=== PATIENT | male | born 1945 | race Caucasian/White ===

== ENCOUNTER 2017-06-15 07:07 | Day surgery (SDC) | payer MEDICARE ==
[2017-06-15] MEDS ORDERED: LACTATED RINGERS 1,000 ML IV ONE (07:14)
[2017-06-15] MEDS ORDERED: MIDAZOLAM 2 MG/2 ML VIAL IVP ONE (08:48)
[2017-06-15] MEDS ORDERED: fentaNYL 100 MCG/2 ML VIAL IVP ONE (08:48)
[2017-06-15 09:36] VITALS: BP 92/36
== END 2017-06-15 07:08 | disposition home or self-care (01) ==
LOC: SDS 07:07
PROVIDERS: ATTEND Surgery
PROC: 0DBL8ZX Excision of Transverse Colon, Via Natural or Artificial Opening Endoscopic, Diagnostic (ICD-10-PCS; 2017-06-15)
PROC: 0DBK8ZX Excision of Ascending Colon, Via Natural or Artificial Opening Endoscopic, Diagnostic (ICD-10-PCS; principal; 2017-06-15 08:15)
DX: Z12.11 Encounter for screening for malignant neoplasm of colon (principal); D12.2 Benign neoplasm of ascending colon; D12.3 Benign neoplasm of transverse colon; K57.30 Diverticulosis of large intestine without perforation or abscess without bleeding; I10 Essential (primary) hypertension; E78.5 Hyperlipidemia, unspecified; Z79.82 Long term (current) use of aspirin
CPT/HCPCS: 45384; J7120

== ENCOUNTER 2018-05-26 15:29 | Outpatient (CLI) | payer MEDICARE | END 2018-05-26 15:30 | disposition home or self-care (01) | LOC: LAB 15:29 | PROVIDERS: ATTEND Family Medicine | DX: M79.661 Pain in right lower leg (principal) | CPT/HCPCS: 36415; 85379 ==

== ENCOUNTER 2018-06-09 10:03 | Outpatient (CLI) | payer MEDICARE ==
[2018-06-09 13:24] LABS: BASOPHILS # (AUTO) 0.2 10^3/uL (0.0-0.1); BASOPHILS % (AUTO) 1.9 %; EOSINOPHILS # (AUTO) 0.4 10^3/uL (0.0-0.7); EOSINOPHILS % (AUTO) 4.2 %; HGB - HEMOGLOBIN 14.2 g/dL (14.0-18.0); LYMPHOCYTES # (AUTO) 2.1 10^3/uL (1.5-3.5); LYMPHOCYTES % (AUTO) 24.4 %; MEAN CORPUSCULAR HEMOGLOBIN 28.8 pg (27.0-31.0); MEAN CORPUSCULAR HGB CONC 34.7 g/dL (32.0-36.0); MONOCYTES # (AUTO) 0.8 10^3/uL (0.0-1.0); NEUTROPHILS # (AUTO) 5.1 10^3/uL (1.5-6.6); NEUTROPHILS % (AUTO) 60.5 %; RED BLOOD COUNT 4.93 10^6/uL (4.70-6.10); RED CELL DISTRIBUTION WIDTH 13.5 % (12.0-15.0); WHITE BLOOD COUNT 8.5 x10^3/uL (4.8-10.8)
[2018-06-09 13:37] LABS: PLATELET ESTIMATE, MANUAL NORMAL (130-450,000) (NORMAL); PLATELET MORPHOLOGY PLATELET CLUMPING (NORMAL); RBC MORPHOLOGY (MULTIPLE) NORMAL APPEARANCE (NORMAL)
== END 2018-06-09 23:59 | disposition home or self-care (01) ==
LOC: LAB.WCP 10:03
PROVIDERS: ATTEND Family Medicine
DX: D69.6 Thrombocytopenia, unspecified (principal)
CPT/HCPCS: 36415; 85025

== ENCOUNTER 2018-06-12 08:22 | Outpatient (CLI) | payer MEDICARE ==
--- NOTE | 2018-06-14 09:46 | Ultrasound Report ---
Reason: POPLITEAL CYST Procedure Date: 06/12/2018 Accession Number: [id number] / [id number] Procedure: US - Ext Limited Non Vascular CPT Code: FULL RESULT: EXAM: RIGHT LOWER EXTREMITY ULTRASOUND - LIMITED EXAM DATE: 06/12/2018 08:47 AM. CLINICAL HISTORY: Popliteal cyst. COMPARISON: None. TECHNIQUE: Real-time scanning was performed with static images obtained. FINDINGS: The popliteal vein is patent by compression and color Doppler. No cystic structure is seen in the region of the popliteal fossa. IMPRESSION: No popliteal fossa cyst. RADIA
== END 2018-06-12 08:23 | disposition home or self-care (01) ==
LOC: DI 08:22
PROVIDERS: ATTEND Family Medicine
DX: M71.20 Synovial cyst of popliteal space [Baker], unspecified knee (principal)
CPT/HCPCS: 76882

== ENCOUNTER 2018-06-14 11:30 | Outpatient (CLI) | payer MEDICARE ==
[2018-06-14 18:54] LABS: BASOPHILS # (AUTO) 0.2 10^3/uL (0.0-0.1); EOSINOPHILS # (AUTO) 0.3 10^3/uL (0.0-0.7); EOSINOPHILS % (AUTO) 3.7 %; HGB - HEMOGLOBIN 14.3 g/dL (14.0-18.0); LYMPHOCYTES # (AUTO) 1.6 10^3/uL (1.5-3.5); LYMPHOCYTES % (AUTO) 20.3 %; MEAN CORPUSCULAR HEMOGLOBIN 28.9 pg (27.0-31.0); MEAN CORPUSCULAR HGB CONC 31.2 g/dL (32.0-36.0); MEAN CORPUSCULAR VOLUME 92.6 fL (80.0-94.0); MEAN PLATELET VOLUME 10.9 fL (7.4-11.4); MONOCYTES # (AUTO) 0.6 10^3/uL (0.0-1.0); MONOCYTES % (AUTO) 8.1 %; NEUTROPHILS # (AUTO) 5.2 10^3/uL (1.5-6.6); NEUTROPHILS % (AUTO) 65.9 %; RED BLOOD COUNT 4.95 10^6/uL (4.70-6.10); RED CELL DISTRIBUTION WIDTH 15.1 % (12.0-15.0); WHITE BLOOD COUNT 7.9 x10^3/uL (4.8-10.8)
[2018-06-14 19:47] LABS: PLATELET ESTIMATE, MANUAL NORMAL (130-450,000) (NORMAL); PLATELET MORPHOLOGY PLATELET CLUMPING (NORMAL); RBC MORPHOLOGY (MULTIPLE) NORMAL APPEARANCE (NORMAL)
== END 2018-06-14 11:31 | disposition home or self-care (01) ==
LOC: LAB.WCP 11:30
PROVIDERS: ATTEND Family Medicine
DX: D69.6 Thrombocytopenia, unspecified (principal)
CPT/HCPCS: 36415; 85025

== ENCOUNTER 2018-08-22 16:45 | Outpatient (CLI) | payer MEDICARE ==
--- NOTE | 2018-08-23 07:55 | Ultrasound Report ---
Reason: KNEE PAIN,RIGHT Procedure Date: 08/22/2018 Accession Number: [id number] / [id number] Procedure: US - Duplex Venous Limited CPT Code: FULL RESULT: EXAM: RIGHT LOWER EXTREMITY VENOUS ULTRASOUND EXAM DATE: 08/22/2018 04:51 PM. CLINICAL HISTORY: KNEE PAIN,RIGHT. Intermittent swelling and pain right calf. COMPARISON: Limited extremity ultrasound 06/12/2018. Right knee radiographs 04/21/2018. TECHNIQUE: Real-time sonographic vascular imaging was performed by the director adult through the lower extremity utilizing both color-flow and Doppler spectral analysis. Multiple pharmacy sales representative static images were saved for review. FINDINGS: Common Femoral Vein (CFV): Normal. CFV-GSV Junction: Normal. Profunda Femoral Vein (PFV): Normal. Femoral Vein (FV) Prox: Normal. Femoral Vein (FV) Mid: Normal. Femoral Vein (FV) Dist: Normal. Popliteal Vein: Normal. Posterior Tibial Veins: Normal. Peroneal Veins: Normal. Contralateral Side CFV: Normal. Other: None. IMPRESSION: No evidence for deep venous thrombosis. RADIA
--- NOTE | 2018-08-23 13:50 | MRI Report ---
Reason: KNEE PAIN,RIGHT Procedure Date: 08/22/2018 Accession Number: [id number] / [id number] Procedure: MRI - Knee RT W/O CPT Code: FULL RESULT: EXAM: RIGHT KNEE MRI WITHOUT CONTRAST EXAM DATE: 08/22/2018 06:19 PM. CLINICAL HISTORY: Right knee pain for 4 months. COMPARISON: 04/21/2018 radiograph. TECHNIQUE: Multiplanar, multisequence T1-weighted and fluid-sensitive sequences of the knee without contrast. Other: None. FINDINGS: Bones: No fractures. There is marrow edema in the lateral femoral condyle and lateral tibial plateau. This is likely reactive. Mild lateral compartment osteophytes are present. Articular Cartilage: Mild patellofemoral and medial compartment osteophytes are present. There is severe cartilage thinning of the lateral tibial plateau articular cartilage. Medial Meniscus: The medial meniscus is intact. Lateral Meniscus: There is a large horizontal tear of the body of the lateral meniscus. A high-grade radial tear is at the posterior root of the lateral meniscus. Cruciate Ligaments: The anterior and posterior cruciate ligaments are intact. Collateral Ligaments: The medial collateral and lateral collateral ligamentous structures are intact. Tendons: The patient has calcific enthesopathy of the extensor mechanism. The patellar, semimembranosus, and popliteus tendons are unremarkable. Musculature: Mild edema within the lateral gastrocnemius muscle indicates grade 1 strain or delayed onset muscle soreness. Other: A mild effusion is present. There is a small, ruptured popliteal cyst. No loose bodies. The medial and lateral retinacula are intact. Prepatellar subcutaneous edema is seen. IMPRESSION: 1. Mild lateral compartment osteoarthritis. 2. Significant tearing of the lateral meniscus. 3. Mild knee effusion and small ruptured popliteal cyst. RADIA
== END 2018-08-22 16:46 | disposition home or self-care (01) ==
LOC: DI 16:45
PROVIDERS: ATTEND Orthopaedic Surgery Sports Medicine
DX: M17.11 Unilateral primary osteoarthritis, right knee (principal); S83.281A Other tear of lateral meniscus, current injury, right knee, initial encounter; M25.461 Effusion, right knee; M66.0 Rupture of popliteal cyst
CPT/HCPCS: 93971

== ENCOUNTER 2018-09-13 08:04 | Outpatient (CLI) | payer MEDICARE ==
[2018-09-13 08:29] LABS: BASOPHILS % (AUTO) 0.5 %; EOSINOPHILS # (AUTO) 0.3 10^3/uL (0.0-0.7); EOSINOPHILS % (AUTO) 5.1 %; LYMPHOCYTES # (AUTO) 1.8 10^3/uL (1.5-3.5); LYMPHOCYTES % (AUTO) 26.3 %; MEAN CORPUSCULAR HEMOGLOBIN 27.8 pg (27.0-31.0); MEAN CORPUSCULAR HGB CONC 33.3 g/dL (32.0-36.0); MEAN CORPUSCULAR VOLUME 83.6 fL (80.0-94.0); MEAN PLATELET VOLUME 8.7 fL (7.4-11.4); MONOCYTES # (AUTO) 0.7 10^3/uL (0.0-1.0); MONOCYTES % (AUTO) 9.9 %; NEUTROPHILS # (AUTO) 3.9 10^3/uL (1.5-6.6); NEUTROPHILS % (AUTO) 58.2 %; PLT - PLATELET COUNT 257 10^3/uL (130-450); RED BLOOD COUNT 5.38 10^6/uL (4.70-6.10); RED CELL DISTRIBUTION WIDTH 13.4 % (12.0-15.0); WHITE BLOOD COUNT 6.7 x10^3/uL (4.8-10.8)
[2018-09-13 10:50] LABS: ALBUMIN 4.6 g/dL (3.2-5.5); ALBUMIN/GLOBULIN RATIO 1.4 (1.0-2.2); ALKALINE PHOSPHATASE 60 IU/L (42-121); ALT ALANINE AMINOTRANSFERASE 18 IU/L (10-60); AST ASPARTATE AMINOTRANSFERASE 25 IU/L (10-42); BILIRUBIN,TOTAL 1.3 mg/dL (0.2-1.0); BUN - BLOOD UREA NITROGEN 24 mg/dL (6-20); CALCIUM 9.3 mg/dL (8.5-10.3); CARBON DIOXIDE - CO2 28 mmol/L (21-32); CHLORIDE 103 mmol/L (101-111); CHOL/HDL RATIO 3.2 (<5.0); CHOLESTEROL 171 mg/dL; CREATININE 1.1 mg/dL (0.6-1.2); GFR - MDRD 65 (>89); GLUCOSE 94 mg/dL (70-100); HDL CHOLESTEROL 54 mg/dL; LDL CHOLESTEROL,CALCULATED 95 mg/dL; LDL/HDL RATIO 1.8 (<3.6); SODIUM 140 mmol/L (135-145); TOTAL PROTEIN 7.8 g/dL (6.7-8.2); VLDL CHOLESTEROL 22 mg/dL
== END 2018-09-13 08:05 | disposition home or self-care (01) ==
LOC: LAB 08:04
PROVIDERS: ATTEND Family Medicine
DX: I10 Essential (primary) hypertension (principal); E78.1 Pure hyperglyceridemia
CPT/HCPCS: 36415; 80053; 80061; 83721; 85025

== ENCOUNTER 2018-09-22 08:10 | Outpatient (CLI) | payer MEDICARE ==
--- NOTE | 2018-09-22 14:08 | Ultrasound Report ---
Reason: SWELLING OF BILATERAL LEGS,VARICOSE VEINS,LOWER EX Procedure Date: 09/22/2018 Accession Number: [id number] / [id number] Procedure: US - Duplex Ext Veins Bilateral CPT Code: FULL RESULT: EXAM: BILATERAL LOWER EXTREMITY VENOUS ULTRASOUND EXAM DATE: 09/22/2018 08:59 AM. CLINICAL HISTORY: SWELLING OF BILATERAL LEGS,VARICOSE VEINS,LOWER EX. COMPARISON: 08/22/2018 TECHNIQUE: Real-time sonographic vascular imaging was performed by the licensed embalmer supervisor through the lower extremities utilizing both color-flow and Doppler spectral analysis. Multiple aircraft sales representative static images were saved for review. FINDINGS: Right: Common Femoral Vein (CFV): Normal. CFV-GSV Junction: Normal. Femoral Vein (FV) Prox: Normal. Femoral Vein (FV) Mid: Normal. Femoral Vein (FV) Dist: Normal. Popliteal Vein: Normal. Posterior Tibial Veins: Normal. Peroneal Veins: Normal. Left: Common Femoral Vein (CFV): Normal. CFV-GSV Junction: Normal. Femoral Vein (FV) Prox: Normal. Femoral Vein (FV) Mid: Normal. Femoral Vein (FV) Dist: Normal. Popliteal Vein: Normal. Posterior Tibial Veins: Normal. Peroneal Veins: Normal. Other: Possible small Willard's cyst right popliteal fossa 3.5 x 0.7 x 0.5 cm. IMPRESSION: No evidence for deep venous thrombosis bilateral lower extremities. RADIA
--- NOTE | 2018-09-22 15:37 | Ultrasound Report ---
Reason: SWELLING OF BILATERAL LEGS,VARICOSE VEINS,LOWER EX Procedure Date: 09/22/2018 Accession Number: [id number] / [id number] Procedure: US - Duplex Lwr Ext Arterial Bilat CPT Code: FULL RESULT: EXAM: Bilateral Lower Extremity Arterial Doppler Ultrasound EXAM DATE: 09/22/2018 08:18 AM. CLINICAL HISTORY: Swelling of bilateral legs, varicose veins. COMPARISON: None. TECHNIQUE: Real-time sonographic vascular imaging was performed by the interlocking installer, utilizing color-flow, Doppler flow, and spectral analysis. Multiple marketing development representative static images were saved for review. FINDINGS: Right Leg: MACHINE MAINTENANCE: PSV 104 cm/sec. Biphasic waveform. PSFA: PSV 92 cm/sec. Biphasic waveform. MSFA: PSV 99 cm/sec. Biphasic waveform. DSFA: PSV 114 cm/sec. Triphasic waveform. PFA: PSV 99 cm/sec. Biphasic waveform. POP: PSV 66 cm/sec. Triphasic waveform. NAYELI: PSV 90 cm/sec. Triphasic/triphasic waveform. PRINCIPAL ARCHITECTURAL FIRM: PSV 86 cm/sec. Biphasic waveform. PER: PSV 80 cm/sec. Biphasic waveform. DPA: PSV 60 cm/sec. Triphasic waveform. Left Leg: MACHINE MAINTENANCE: PSV 118 cm/sec. Triphasic waveform. PSFA: PSV 122 cm/sec. Triphasic waveform. MSFA: PSV 100 cm/sec. Biphasic waveform. DSFA: PSV 118 cm/sec. Biphasic waveform. PFA: PSV 82 cm/sec. Biphasic waveform. POP: PSV 90 cm/sec. Triphasic waveform. NAYELI: PSV 58 cm/sec. Triphasic waveform. PRINCIPAL ARCHITECTURAL FIRM: PSV 85 cm/sec. Biphasic waveform. PER: Not seen. DPA: PSV 105 cm/sec. Triphasic waveform. Systolic Pressures: Brachial: Right 134/58. Left 126/60. Ankle: Right 138/56. Left 145/57. Ankle/Arm Index: Right 1.0. Left 1.1. IMPRESSION: No flow limiting stenosis in either lower extremity arterial system. RADIA
== END 2018-09-22 08:11 | disposition home or self-care (01) ==
LOC: DI 08:10
PROVIDERS: ATTEND Family Medicine
DX: I83.90 Asymptomatic varicose veins of unspecified lower extremity (principal); M79.89 Other specified soft tissue disorders
CPT/HCPCS: 93922; 93925; 93970

== ENCOUNTER 2018-10-13 10:10 | Outpatient (CLI) | payer MEDICARE ==
[2018-10-13 15:29] LABS: BASOPHILS # (AUTO) 0.1 10^3/uL (0.0-0.1); BASOPHILS % (AUTO) 1.2 %; EOSINOPHILS # (AUTO) 0.4 10^3/uL (0.0-0.7); EOSINOPHILS % (AUTO) 4.9 %; LYMPHOCYTES # (AUTO) 1.8 10^3/uL (1.5-3.5); LYMPHOCYTES % (AUTO) 24.5 %; MEAN CORPUSCULAR HEMOGLOBIN 27.7 pg (27.0-31.0); MEAN CORPUSCULAR HGB CONC 32.5 g/dL (32.0-36.0); MEAN CORPUSCULAR VOLUME 85.2 fL (80.0-94.0); MEAN PLATELET VOLUME 10.5 fL (7.4-11.4); MONOCYTES # (AUTO) 0.6 10^3/uL (0.0-1.0); MONOCYTES % (AUTO) 8.6 %; NEUTROPHILS # (AUTO) 4.5 10^3/uL (1.5-6.6); NEUTROPHILS % (AUTO) 60.5 %; PLT - PLATELET COUNT 253 10^3/uL (130-450); RED BLOOD COUNT 5.06 10^6/uL (4.70-6.10); RED CELL DISTRIBUTION WIDTH 13.1 % (12.0-15.0); WHITE BLOOD COUNT 7.5 x10^3/uL (4.8-10.8)
[2018-10-13 15:38] LABS: ALBUMIN 4.3 g/dL (3.2-5.5); ALBUMIN/GLOBULIN RATIO 1.3 (1.0-2.2); CALCIUM 9.1 mg/dL (8.5-10.3); TOTAL PROTEIN 7.5 g/dL (6.7-8.2)
== END 2018-10-13 23:59 | disposition home or self-care (01) ==
LOC: LAB 10:10
PROVIDERS: ATTEND Family Medicine
DX: Z01.818 Encounter for other preprocedural examination (principal); S83.281A Other tear of lateral meniscus, current injury, right knee, initial encounter
CPT/HCPCS: 36415; 80053; 85025; 93005

== ENCOUNTER 2018-10-19 08:52 | Day surgery (SDC) | payer MEDICARE ==
[~2018-10-19 08:52] MED LIST: CEFAZOLIN SODIUM IN 0.9 % NACL 2 GM/100 ML BAG IV ONE
--- NOTE | 2018-10-19 09:14 | ANESTHESIA ---
Pre-Anesthesia VS, & Labs - Diagnosis Right knee meniscus tear - Procedure Right knee scope Vital Signs: Temp Pulse Resp BP Pulse Ox 36.3 C L 64 15 137/75 H 100 10/19/18 09:05 10/19/18 09:05 10/19/18 09:05 10/19/18 09:05 10/19/18 09:05 Height 5 ft 10 in Weight (kg) 80.2 kg Body Mass Index 25.9 - NPO Other (Black coffee at 0530) - Lab Results Lab results reviewed: Yes Home Medications and Allergies Home Medications: Ambulatory Orders Triamcinolone Acetonide [Nasacort] 1 spray NS DAILY 10/13/18 Felodipine [Felodipine ER] 10 mg PO DAILY 03/20/14 Gemfibrozil 600 mg PO BID 03/20/14 Multivitamin [Multiple Vitamins] 1 tab PO DAILY 08/01/18 Saw [place] 1 cap PO DAILY 08/01/18 Triamcinolone Acetonide [Nasacort] 1 spray NS DAILY 10/13/18 Allergies/Adverse Reactions: Allergies Allergy/AdvReac Type Severity Reaction Status Date / Time No Known Drug Allergies Allergy Verified 08/01/18 15:52 Anes History & Medical History - Anesthetic History Anesthesia Complications: reports: No previous complications Family history of Anesthesia Complications: Denies Family history of Malignant Hyperthermia: Denies - Medical History Cardiovascular: reports: Hypertension, High cholesterol Pulmonary: reports: None Gastrointestinal: reports: None Urinary: reports: None Neuro: reports: None Musculoskeletal: reports: None Endocrine/Autoimmune: reports: None Blood Disorders: reports: None Skin: reports: None Smoking Status: Never smoker Psychosocial: reports: No issues indicated - Surgical History General: Colonoscopy Neurologic: Other (Laminectomy) Orthopedic: Spine surgery Exam General: Alert Dental: WNL Mouth Opening: Greater than 4 Fingerbreadths Neck Mobility: Normal Mallampati classification: I Thyromental Distance: greater than 6 cm Respiratory: Lungs clear Cardiovascular: Regular rate Mental/Cognitive Status: Alert/Oriented X3 Cognitive Status: Within normal limits Plan Anesthesia Type: Spinal Consent for Procedure(s) Verified and Reviewed: Yes Code Status: Attempt Resuscitation ASA classification: 2-Mild systemic disease Is this case an emergency?: No
[2018-10-19] MEDS ORDERED: LACTATED RINGERS 1,000 ML IV ONE ×2 (09:21→12:14)
[2018-10-19] MEDS ORDERED: BUPIVACAINE 0.25%-EPI 1:200000 PF 30 ML VIAL ONE (10:50)
[2018-10-19] MEDS ORDERED: EPINEPHrine 1 MG/ML AMP ONE (10:50)
[2018-10-19] MEDS ORDERED: LIDOCAINE-MPF 2% 5 ML VIAL IM ONE (11:30)
[2018-10-19] MEDS ORDERED: BUPIVACAINE 0.25% PF 30 ML VIAL SUBQ ONE (11:30)
[2018-10-19] MEDS ORDERED: fentaNYL 100 MCG/2 ML VIAL IVP ONE (11:30)
[2018-10-19] MEDS ORDERED: ONDANSETRON 4 MG/2 ML VIAL IVP ONE (11:30)
[2018-10-19] MEDS ORDERED: ACETAMINOPHEN 1,000 MG/100 ML 100 ML IV ONE (11:30)
[2018-10-19] MEDS ORDERED: DEXAMETHASONE 4 MG/ML VIAL IVP ONE (11:30)
[2018-10-19] MEDS ORDERED: PROPOFOL 200 MG/20 ML VIAL IVP ONE (11:30)
[2018-10-19] MEDS ORDERED: BUPIVACAINE 0.25%-EPI 1:200000 PF 30 ML VIAL SUBQ ONE (11:40)
[2018-10-19] MEDS ORDERED: ONDANSETRON 4 MG/2 ML VIAL IVP PRN (12:21)
[2018-10-19] MEDS ORDERED: oxyCODONE 5 MG TABLET PO PRN (12:21)
--- NOTE | 2018-10-19 12:26 | IMMEDIATE POSTOPERATIVE NOTE ---
Immediate Postoperative Note - Procedure Note Procedure Date: 10/19/18 Pre-Op Diagnosis: Right knee lateral meniscus tear, underlying degenerative disease Procedure: Right knee arthroscopic partial lateral meniscectomy Post-Op Diagnosis: Same Stress Test Technician: None Anesthesia Type: General LMA, Local Findings: As above Complications: No complications Estimated Blood Loss (in cc): 25 Plan of Care: Patient tolerated procedure well instrument and sponge counts correct patient transferred to the recovery room in stable condition will follow standard postoperative right knee partial lateral meniscectomy protocol
[2018-10-19 13:31] VITALS: BP 129/73
--- NOTE | 2018-10-19 16:36 | OPERATIVE REPORT ---
DATE OF SERVICE: 10/19/2018 Physician: Shayne Domingo MD SURGEON: Shayne Domingo MD MANAGER SPECIAL EVENTS: None. ANESTHESIA PROVIDER: Дмитрий Hurst CRNA ANESTHESIA TYPE: General LMA, as well as 8 mL of 0.25% Marcaine with epinephrine. ESTIMATED BLOOD LOSS: 25 mL TOURNIQUET TIME: 22 minutes at 250 mmHg. FLUIDS: 1000 mL lactated Ringer's. PREOPERATIVE ANTIBIOTICS: 2 grams weight-based IV Ancef. PREOPERATIVE DIAGNOSES 1. Right knee lateral meniscus tear. 2. Right knee degenerative joint disease, multiple compartments. POSTOPERATIVE DIAGNOSES 1. Right knee lateral meniscus tear. 2. Right knee degenerative joint disease, multiple compartments. PROCEDURE: Right knee arthroscopic partial lateral meniscectomy. HISTORY OF PRESENT ILLNESS AND INDICATIONS: Patient is an active gentleman who has had intermittent right knee pain, thought to be caused by his lateral meniscus tear. He has underlying degenerative disease and is not felt to have pain typical of degenerative disease, though it is understood that he had both processes going on. He is previously indicated for operative treatment, with the understanding that there are associated risks. Please see operative visit with risks, benefits and alternatives discussion from the clinic. These are again highlighted with the patient and the patient's in the preoperative care unit. Potential need for treatment alteration and even surgery in the future and potential for failure of the surgery are discussed, amongst the other risks. Informed consent is given. 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 Minimal fraying of the free edge of the medial meniscus, but no significant meniscal tear there. Medial and lateral gutters clear. Lateral compartment show grade 2-3 chondromalacia, greater than 50% and greater than 60% to 70% complex tearing of the body and posterior horn of the lateral meniscus. Post debridement, there is stable tissue, both at the most anterior aspect of the meniscus and the very most posterior horn, stable. DESCRIPTION OF PROCEDURE On 10/19/2018, patient is identified in the preoperative care unit. He identifies his right knee as the operative site. This is signed by the operating surgeon. Patient received preoperative weight-based IV antibiotics, brought to the operating room, placed supine on the operating table. General anesthesia is administered. Head, neck, and extremities placed in anatomically comfortable and safe position to avoid peripheral nerve stretch and compression. Patient's right lower extremity has a well-padded tourniquet placed high on the right thigh, taking care to avoid the encumbrance of the genitalia. Patient's right knee is pre-scrubbed with Hibiclens solution and then alcohol, and then prepped and draped in the usual sterile ChloraPrep and procedure. At this time, surgical pause identifies the right knee as the operative site. Local anesthetic is infused at the anticipated anteromedial and anterolateral superior medial portal sites. At this point, a small incision is made anterolaterally and superomedially with the knee flexed. Trocar for the scope is placed into the notch, and then in the suprapatellar pouch fluid infused. Outflow portal is created superomedially, and then an outside-in technique is used to create an anteromedial portal, where a probe is used. Diagnostic arthroscopy is carried out. Please see operative findings. At this point, varus-valgus maneuvers are used to open up the respective compartments to avoid iatrogenic injury to the articular cartilage. At this point, once there is noted to be an indication only for a partial meniscectomy, varus maneuver is used to open up the lateral compartment, and a combination of meniscal baskets and curved meniscal shaver and a straight meniscal shaver are used to debride nonviable and torn portions of the meniscus to healthy, stable tissue. Once this is performed, the meniscus is probed and noted to be stable. Minimal shaving chondroplasty of small loose pieces is performed. The chondral surfaces are probed and noted to be stable otherwise. The meniscus is noted to be stable. Instruments are removed. The joint is copiously irrigated and then evacuated, and then local anesthesia infused around the incisions and the incisions are closed using interrupted nylon suture. Skin is washed and dried. Xeroform dressing is applied. Dry, sterile dressing is applied, Sof-Rol and then Augie wrap. Patient tolerated the procedure well. Instrument and sponge counts are correct. Patient is transferred to the recovery room in stable condition. Follow up with standard postoperative partial meniscectomy protocol, right knee. Patient's is contacted in the waiting room, case is discussed, postoperative instructions given. Preoperative medication plan reviewed. He denied any contraindication to medications. PLAN: He will be on aspirin and DVT prophylaxis once daily for 1 month, if no other contraindications. He will be on narcotic analgesics as necessary and stool softener while on narcotic analgesics. He will do gradual activities as tolerated, though avoid exertion. They are given post-procedure dressing change instructions. They will followup in 10-14 days or sooner on an as-needed basis. Her questions are answered. She verbalizes agreement and satisfaction with the plan as outlined. TD: 10/19/2018 13:23 CORY
== END 2018-10-19 08:53 | disposition home or self-care (01) ==
LOC: SDS 08:52
PROVIDERS: ATTEND Orthopaedic Surgery Sports Medicine
PROC: 0SBC4ZZ Excision of Right Knee Joint, Percutaneous Endoscopic Approach (ICD-10-PCS; principal; 2018-10-19 10:00)
DX: M23.251 Derangement of posterior horn of lateral meniscus due to old tear or injury, right knee (principal); M17.11 Unilateral primary osteoarthritis, right knee; M94.261 Chondromalacia, right knee; M79.89 Other specified soft tissue disorders; I10 Essential (primary) hypertension; Z79.899 Other long term (current) drug therapy
CPT/HCPCS: 29881; J0131; J0690; J7120

== ENCOUNTER 2018-10-21 14:29 | Emergency (ER) | payer MEDICARE ==
--- NOTE | 2018-10-21 16:16 | ED Physician Documentation ---
History of Present Illness - Stated complaint Stated Complaint: POST OP COMPLICATIONS - Chief complaint Chief Complaint: Ext Problem - History obtained from History obtained from: Patient - Additonal information Additional information: Patient is a 73-year-old male with recent right knee meniscus surgery presenting with concern for possible DVT. Patient reports that he has baseline lower extremity swelling that has been investigated by vascular surgery with no specific diagnosis. Since his surgery, he has noted right lower extremity swelling and calf pain, but no other overlying skin changes. Patient denies any complications to the knee itself including swelling, redness, or abnormal wound healing. Patient still has stitches in place. Patient denies any significant strength or sensation changes in the right lower extremity, but limited range of motion given recent surgery. Patient denies fever, chills, chest pain, difficulty breathing, lightheadedness, syncope.Patient is on full dose ASA. No other improving or worsening factors noted. Review of Systems Constitutional: denies: Fever Cardiac: denies: Chest pain / pressure Respiratory: denies: Dyspnea, Cough GI: denies: Abdominal Pain, Nausea, Vomiting, Diarrhea : denies: Dysuria Skin: denies: Rash Musculoskeletal: reports: Extremity pain, Extremity swelling Neurologic: denies: Focal weakness PD PAST MEDICAL HISTORY - Past Medical History Past Medical History: Yes Cardiovascular: Hypertension, High cholesterol, Other Respiratory: None Neuro: None Endocrine/Autoimmune: None GI: Colon polyps : Benign prostate hypertrophy HEENT: None Psych: None Musculoskeletal: None Derm: None - Past Surgical History Past Surgical History: Yes General: Colonoscopy Ortho: Spine surgery Neuro: Other - Present Medications Home Medications: Ambulatory Orders Medication Instructions Recorded Confirmed Felodipine [Felodipine ER] 10 mg PO DAILY 03/20/14 10/19/18 Gemfibrozil 600 mg PO BID 03/20/14 10/19/18 Multivitamin [Multiple Vitamins] 1 tab PO DAILY 08/01/18 10/19/18 Saw [place] 1 cap PO DAILY 08/01/18 10/19/18 Triamcinolone Acetonide [Nasacort] 1 spray NS DAILY 10/13/18 10/19/18 - Allergies Allergies/Adverse Reactions: Allergies Allergy/AdvReac Type Severity Reaction Status Date / Time No Known Drug Allergies Allergy Verified 08/01/18 15:52 - Social History Does the pt smoke?: No Smoking Status: Never smoker Does the pt drink ETOH?: No Does the pt have substance abuse?: No PD ED PE NORMAL - Vitals Vital signs reviewed: Yes - General General: Alert and oriented X 3, No acute distress, Well developed/nourished - HEENT HEENT: Atraumatic, Moist mucous membranes - Cardiac Cardiac: RRR, No murmur - Respiratory Respiratory: No respiratory distress, Clear bilaterally - Abdomen Abdomen: Soft, Non tender, Non distended - Derm Derm: Normal color, Warm and dry, No rash - Extremities Extremities: Other (Bandaging in place over right knee without signs of significant swelling or erythema. Stitches in place. Mild appreciable pedal edema bilaterally with calf pain to right leg. No change in sensation, strength, range of motion to either lower extremity except for right knee due to recent surgery.) - Neuro Neuro: Alert and oriented X 3, No motor deficit, No sensory deficit - Psych Psych: Normal mood, Normal affect Results - Vitals Vitals: Vital Signs - 24 hr 10/21/18 14:33 Temperature 36.9 C Heart Rate 96 Respiratory 16 Rate Blood Pressure 124/68 O2 Saturation 99 Oxygen O2 Source Room air PD MEDICAL DECISION MAKING - ED course Complexity details: reviewed results, re-evaluated patient, considered differential, d/w patient ED course: Patient presenting with concern for possible right sided DVT. Patient had recent meniscus surgery to the right knee which was uncomplicated. Do not find evidence of joint infection, cellulitis, abscess, lymphangitis on exam. Patient denies any new injuries or bony pain and have low suspicion for fracture dislocation at this time. Do not feel patient requires x-rays. Ultrasound obtained which not show evidence of DVT. Patient can continue on full dose aspirin, as well as continue his supportive cares at home. Discussed return precautions and appropriate follow-up including orthopedic surgery follow-up. Patient voiced understanding and is otherwise comfortable with discharge plan. Departure - Departure Disposition: 01 Home, Self Care Clinical Impression: Pedal edema Condition: Good Instructions: ED Edema Legs Bilateral Follow-Up: Summer Hogan MD [Primary Care Provider] - Within 3 Days Comments: Please continue care and activity as instructed. Please continue home medications. Recommend ice, elevation, ibuprofen/Tylenol as needed for pain and swelling. Follow-up with your primary care physician and orthopedic surgery in the next 2 to 3 days or as scheduled. Return to ED sooner if experience new symptoms, new injury, or other concerns.
--- NOTE | 2018-10-21 16:30 | Ultrasound Report ---
Reason: Leg swelling p surgery Procedure Date: 10/21/2018 Accession Number: [id number] / [id number] Procedure: US - Duplex Ext Veins Right CPT Code: FULL RESULT: EXAM: RIGHT LOWER EXTREMITY VENOUS ULTRASOUND EXAM DATE: 10/21/2018 03:37 PM. CLINICAL HISTORY: Leg swelling after surgery. COMPARISON: None. TECHNIQUE: Real-time sonographic vascular imaging was performed by the volunteer specialist through the lower extremity utilizing both color-flow and Doppler spectral analysis. Multiple senior sales representative static images were saved for review. FINDINGS: Common Femoral Vein (CFV): Normal. CFV-GSV Junction: Normal. Profunda Femoral Vein (PFV): Normal. Femoral Vein (FV) Prox: Normal. Femoral Vein (FV) Mid: Normal. Femoral Vein (FV) Dist: Normal. Popliteal Vein: Normal. Posterior Tibial Veins: Normal. Peroneal Veins: Normal. Other: None. IMPRESSION: No evidence for deep venous thrombosis. RADIA
[2018-10-21 16:44] VITALS: BP 148/73
== END 2018-10-21 16:43 | disposition home or self-care (01) ==
LOC: ED 14:29
DX: R60.0 Localized edema (principal); M79.661 Pain in right lower leg; Z98.890 Other specified postprocedural states; I10 Essential (primary) hypertension
CPT/HCPCS: 99282; 99283

== ENCOUNTER 2019-05-16 07:46 | Outpatient (CLI) | payer MEDICARE ==
[2019-05-16 08:35] LABS: BASOPHILS # (AUTO) 0.1 10^3/uL (0.0-0.1); BASOPHILS % (AUTO) 1.3 %; EOSINOPHILS # (AUTO) 0.2 10^3/uL (0.0-0.7); EOSINOPHILS % (AUTO) 3.2 %; HGB - HEMOGLOBIN 14.5 g/dL (14.0-18.0); LYMPHOCYTES # (AUTO) 1.6 10^3/uL (1.5-3.5); LYMPHOCYTES % (AUTO) 23.1 %; MEAN CORPUSCULAR HEMOGLOBIN 28.3 pg (27.0-31.0); MEAN CORPUSCULAR HGB CONC 33.2 g/dL (32.0-36.0); MEAN CORPUSCULAR VOLUME 85.2 fL (80.0-94.0); MEAN PLATELET VOLUME 10.9 fL (7.4-11.4); MONOCYTES # (AUTO) 0.6 10^3/uL (0.0-1.0); MONOCYTES % (AUTO) 8.9 %; NEUTROPHILS # (AUTO) 4.5 10^3/uL (1.5-6.6); NEUTROPHILS % (AUTO) 63.1 %; PLT - PLATELET COUNT 237 10^3/uL (130-450); RED BLOOD COUNT 5.13 10^6/uL (4.70-6.10); RED CELL DISTRIBUTION WIDTH 13.1 % (12.0-15.0); WHITE BLOOD COUNT 7.1 x10^3/uL (4.8-10.8)
[2019-05-16 08:51] LABS: ALBUMIN 4.5 g/dL (3.2-5.5); ALBUMIN/GLOBULIN RATIO 1.4 (1.0-2.2); BILIRUBIN,TOTAL 1.3 mg/dL (0.2-1.0); CREATININE 1.1 mg/dL (0.6-1.2); TOTAL PROTEIN 7.8 g/dL (6.7-8.2)
== END 2019-05-16 07:47 | disposition home or self-care (01) ==
LOC: LAB 07:46
PROVIDERS: ATTEND Family Medicine
DX: M79.89 Other specified soft tissue disorders (principal); M19.90 Unspecified osteoarthritis, unspecified site; I10 Essential (primary) hypertension; E78.5 Hyperlipidemia, unspecified; E78.1 Pure hyperglyceridemia
CPT/HCPCS: 36415; 80053; 84443; 85025

== ENCOUNTER 2019-10-24 09:20 | Outpatient (CLI) | payer MEDICARE ==
[2019-10-24 11:59] LABS: BASOPHILS # (AUTO) 0.1 10^3/uL (0.0-0.1); BASOPHILS % (AUTO) 1.4 %; EOSINOPHILS # (AUTO) 0.2 10^3/uL (0.0-0.7); EOSINOPHILS % (AUTO) 2.8 %; HGB - HEMOGLOBIN 14.4 g/dL (14.0-18.0); LYMPHOCYTES # (AUTO) 1.5 10^3/uL (1.5-3.5); LYMPHOCYTES % (AUTO) 21.5 %; MEAN CORPUSCULAR HEMOGLOBIN 28.4 pg (27.0-31.0); MEAN CORPUSCULAR HGB CONC 32.8 g/dL (32.0-36.0); MEAN CORPUSCULAR VOLUME 86.6 fL (80.0-94.0); MEAN PLATELET VOLUME 11.2 fL (7.4-11.4); MONOCYTES # (AUTO) 0.6 10^3/uL (0.0-1.0); MONOCYTES % (AUTO) 8.4 %; NEUTROPHILS # (AUTO) 4.7 10^3/uL (1.5-6.6); NEUTROPHILS % (AUTO) 65.6 %; PLT - PLATELET COUNT 141 10^3/uL (130-450); RED BLOOD COUNT 5.07 10^6/uL (4.70-6.10); RED CELL DISTRIBUTION WIDTH 13.2 % (12.0-15.0); WHITE BLOOD COUNT 7.2 x10^3/uL (4.8-10.8)
[2019-10-24 12:14] LABS: ALBUMIN 4.2 g/dL (3.2-5.5); ALBUMIN/GLOBULIN RATIO 1.4 (1.0-2.2); ALKALINE PHOSPHATASE 55 IU/L (42-121); ALT ALANINE AMINOTRANSFERASE 14 IU/L (10-60); AST ASPARTATE AMINOTRANSFERASE 20 IU/L (10-42); BILIRUBIN,TOTAL 0.9 mg/dL (0.2-1.0); BUN - BLOOD UREA NITROGEN 25 mg/dL (6-20); CARBON DIOXIDE - CO2 26 mmol/L (21-32); CHLORIDE 103 mmol/L (101-111); CHOL/HDL RATIO 2.7 (<5.0); CHOLESTEROL 159 mg/dL; GLUCOSE 120 mg/dL (70-100); HDL CHOLESTEROL 58 mg/dL; LDL CHOLESTEROL,CALCULATED 54 mg/dL; LDL/HDL RATIO 0.9 (<3.6); SODIUM 138 mmol/L (135-145); TOTAL PROTEIN 7.2 g/dL (6.7-8.2); VLDL CHOLESTEROL 47 mg/dL
== END 2019-10-24 23:59 | disposition home or self-care (01) ==
LOC: LAB.WCP 09:20
PROVIDERS: ATTEND Family Medicine
DX: M79.89 Other specified soft tissue disorders (principal); I83.90 Asymptomatic varicose veins of unspecified lower extremity; D69.6 Thrombocytopenia, unspecified; M25.561 Pain in right knee
CPT/HCPCS: 36415; 80053; 80061; 83721; 84443; 85025

== ENCOUNTER 2020-04-13 10:30 | Outpatient (CLI) | payer MEDICARE | END 2020-04-13 23:59 | disposition home or self-care (01) | LOC: LAB.R 10:30 | PROVIDERS: ATTEND Nurse Practitioner | DX: N36.8 Other specified disorders of urethra (principal); R30.0 Dysuria | CPT/HCPCS: 81599; 87086; 87491; 87591 ==

== ENCOUNTER 2020-06-05 08:00 | Outpatient (CLI) | payer MEDICARE ==
[2020-06-05 07:40] LABS: BASOPHILS # (AUTO) 0.1 10^3/uL (0.0-0.1); BASOPHILS % (AUTO) 1.3 %; EOSINOPHILS # (AUTO) 0.2 10^3/uL (0.0-0.7); EOSINOPHILS % (AUTO) 3.4 %; HGB - HEMOGLOBIN 14.6 g/dL (14.0-18.0); LYMPHOCYTES # (AUTO) 1.5 10^3/uL (1.5-3.5); LYMPHOCYTES % (AUTO) 22.3 %; MEAN CORPUSCULAR HEMOGLOBIN 28.3 pg (27.0-31.0); MEAN CORPUSCULAR HGB CONC 33.3 g/dL (32.0-36.0); MEAN CORPUSCULAR VOLUME 85.1 fL (80.0-94.0); MEAN PLATELET VOLUME 10.3 fL (7.4-11.4); MONOCYTES # (AUTO) 0.6 10^3/uL (0.0-1.0); MONOCYTES % (AUTO) 8.3 %; NEUTROPHILS # (AUTO) 4.4 10^3/uL (1.5-6.6); NEUTROPHILS % (AUTO) 64.6 %; PLT - PLATELET COUNT 255 10^3/uL (130-450); RED BLOOD COUNT 5.16 10^6/uL (4.70-6.10); RED CELL DISTRIBUTION WIDTH 12.8 % (12.0-15.0); WHITE BLOOD COUNT 6.8 x10^3/uL (4.8-10.8)
[2020-06-05 17:24] LABS: ALBUMIN 4.2 g/dL (3.2-5.5); ALBUMIN/GLOBULIN RATIO 1.5 (1.0-2.2); ALKALINE PHOSPHATASE 65 IU/L (42-121); ALT ALANINE AMINOTRANSFERASE 13 IU/L (10-60); AST ASPARTATE AMINOTRANSFERASE 19 IU/L (10-42); BUN - BLOOD UREA NITROGEN 24 mg/dL (6-20); CALCIUM 9.3 mg/dL (8.5-10.3); CARBON DIOXIDE - CO2 26 mmol/L (21-32); CHLORIDE 102 mmol/L (101-111); CHOL/HDL RATIO 2.9 (<5.0); CHOLESTEROL 163 mg/dL; CREATININE 1.2 mg/dL (0.6-1.2); GLUCOSE 92 mg/dL (70-100); HDL CHOLESTEROL 56 mg/dL; LDL CHOLESTEROL,CALCULATED 93 mg/dL; LDL/HDL RATIO 1.7 (<3.6); VLDL CHOLESTEROL 14 mg/dL
== END 2020-06-05 23:59 | disposition home or self-care (01) ==
LOC: LAB 08:00
PROVIDERS: ATTEND Family Medicine
DX: R30.0 Dysuria (principal); Z12.5 Encounter for screening for malignant neoplasm of prostate; I10 Essential (primary) hypertension; E78.5 Hyperlipidemia, unspecified
CPT/HCPCS: 36415; 80053; 80061; 84443; 85025; G0103; 83721; 84153

== ENCOUNTER 2020-07-15 16:37 | Outpatient (CLI) | payer MEDICARE | END 2020-07-15 16:38 | disposition home or self-care (01) | LOC: COV 16:37 | PROVIDERS: ATTEND Ophthalmology | DX: Z01.812 Encounter for preprocedural laboratory examination (principal); H25.811 Combined forms of age-related cataract, right eye; Z20.822 Contact with and (suspected) exposure to COVID-19 ==

== ENCOUNTER 2020-07-18 06:10 | Day surgery (SDC) | payer MEDICARE ==
[2020-07-18] MEDS ORDERED: KETOROLAC 0.45% OPHTH DROPS ONE (06:27)
[2020-07-18] MEDS ORDERED: PROPARACAINE 0.5% OPHTH DROPS 15 ML ONE (06:28)
[2020-07-18] MEDS ORDERED: PHENYLEPHRINE 2.5% OPHTH 2 ML DROPS ONE (06:28)
[2020-07-18] MEDS ORDERED: LACTATED RINGERS 500 ML IV ONE (06:41)
[2020-07-18] MEDS ORDERED: EPINEPHrine 1 MG/ML AMP ONE (07:04)
[2020-07-18] MEDS ORDERED: TRIAMCIN/MOXIFLOX OPHTHALMIC 0.6 ML VIAL IO ONE ×2 (07:04→07:40)
[2020-07-18] MEDS ORDERED: VANCOMYCIN OPHTHALMI 8MG/0.8ML 8 MG/0.8 ML SYRINGE IO ONE ×2 (07:04→07:40)
[2020-07-18] MEDS ORDERED: TIMOLOL 0.5% OPHTH DROPS ONE (07:04)
[2020-07-18] MEDS ORDERED: BSS/LIDOCAINE/EPINEPHRINE 1 ML SYRINGE ONE (07:04)
[2020-07-18] MEDS ORDERED: BRIMONIDINE 0.2% OPHTH DROPS 5 ML ONE (07:04)
--- NOTE | 2020-07-18 07:08 | ANESTHESIA ---
Pre-Anesthesia VS, & Labs - Diagnosis R senile combined cataract - Procedure R extraction cataract w/IOL Vital Signs: Temp Pulse Resp BP Pulse Ox 36.4 C L 68 16 137/81 H 99 07/18/20 06:43 07/18/20 06:43 07/18/20 06:43 07/18/20 06:43 07/18/20 06:43 Height: 5 ft 10 in Weight (kg): 78 kg Body Mass Index: 24.6 BMI Classification: Healthy weight - NPO >8 hours - Lab Results Lab results reviewed: Yes Home Medications and Allergies Felodipine [Felodipine ER] 10 mg PO DAILY 03/20/14 gemfibroziL [Gemfibrozil] 600 mg PO BID 03/20/14 Multivitamin [Multiple Vitamins] 1 tab PO DAILY 08/01/18 Saw [place] 1 cap PO DAILY 08/01/18 Triamcinolone Acetonide [Nasacort] 1 spray NS DAILY 10/13/18 Allergies/Adverse Reactions: Allergies Allergy/AdvReac Type Severity Reaction Status Date / Time No Known Drug Allergies Allergy Verified 11/21/18 10:43 Anes History & Medical History - Anesthetic History Anesthesia Complications: reports: No previous complications Family history of Anesthesia Complications: Denies Family history of Malignant Hyperthermia: Denies - Medical History Cardiovascular: reports: None Pulmonary: reports: None Gastrointestinal: reports: None Urinary: reports: None Neuro: reports: None Musculoskeletal: reports: None Endocrine/Autoimmune: reports: None Blood Disorders: reports: None Skin: reports: None Smoking Status: Never smoker - Surgical History General: reports: Colonoscopy Neurologic: reports: Other Orthopedic: reports: Spine surgery Exam General: Alert, Oriented x3, Cooperative Dental: WNL Mouth Openin Fingerbreadth Neck Mobility: Normal Mallampati classification: II Thyromental Distance: 4-6 cm Respiratory: Lungs clear, Normal breath sounds, No respiratory distress Cardiovascular: Regular rate Neurological: Normal speech Mental/Cognitive Status: Alert/Oriented X3, Normal for patient Cognitive Status: Within normal limits Plan Anesthesia Type: MAC Consent for Procedure(s) Verified and Reviewed: Yes Code Status: Attempt Resuscitation ASA classification: 2-Mild systemic disease Is this case an emergency?: No
[2020-07-18] MEDS ORDERED: MIDAZOLAM 2 MG/2 ML VIAL ONE (07:30)
[2020-07-18] MEDS ORDERED: TIMOLOL 0.5% OPHTH DROPS OPTH ONE (07:39)
[2020-07-18] MEDS ORDERED: CHONDR SULF/HYALURONATE SYRINGE IO ONE (07:39)
[2020-07-18] MEDS ORDERED: EPINEPHrine 1 MG/ML AMP IR ONE (07:39)
[2020-07-18] MEDS ORDERED: BSS/LIDOCAINE/EPINEPHRINE 1 ML SYRINGE IO ONE (07:39)
[2020-07-18] MEDS ORDERED: BRIMONIDINE 0.2% OPHTH DROPS 5 ML OPTH ONE (07:39)
[2020-07-18] MEDS ORDERED: PROPARACAINE 0.5% OPHTH DROPS 15 ML EACHEYE ONE (07:40)
[2020-07-18 07:49] VITALS: BP 125/68
--- NOTE | 2020-07-18 07:53 | ANESTHESIA POST OP EVALUATION ---
Anesthesia Post Eval - Post Anesthesia Eval Vitals: Last Vital Signs Temp 36.4 C L 07/18/20 07:48 Pulse 70 07/18/20 07:48 Resp 16 07/18/20 07:48 BP 125/68 07/18/20 07:48 Pulse Ox 99 07/18/20 07:48 CV Function Including HR & BP: positive: Stable Pain Control: positive: Satisfactory Nausea & Vomiting: positive: Negative Mental Status: positive: Baseline Respiratory Status: Airway Patent Hydration Status: Satisfactory Anesthesia Complications: positive: None
--- NOTE | 2020-07-18 09:08 | OPERATIVE REPORT ---
DATE OF SERVICE: 07/18/2020 Physician: Scot Centeno MD PREOPERATIVE DIAGNOSIS: Visually significant cataract, right eye. This was his first cataract surgery. POSTOPERATIVE DIAGNOSIS: Visually significant cataract, right eye. This was his first cataract surgery. PROCEDURE: Phacoemulsification with posterior chamber intraocular lens implant, right eye. SURGEON: Scot Centeno MD. ANESTHESIA: Monitored anesthesia care. COMPLICATIONS: None. OPERATIVE INDICATIONS: This is a 75-year-old man with progressive vision loss in the right eye due to 3+ nuclear sclerotic and 2+ posterior subcapsular cataract. Best corrected visual acuity was 20/50 with glare to hand motion vision in the right eye. Indications for surgery are overall decrease in vision, difficulty seeing words on a computer screen, difficulty reading, and difficulty seeing words, closed caption or game scores on TV. He also complains of a loss of depth perception. He was consented at length concerning risks and benefits of cataract surgery, after which he expressed a desire to proceed with surgery. OPERATIVE PROCEDURE: The patient was taken into OR #3 and placed under monitored anesthesia care. A surgical timeout was conducted, confirming correct patient, correct procedure, and correct surgical site. He was given topical anesthesia and prepped and draped in usual sterile fashion. The eye was entered at the 12 and 9 o'clock positions. Intracameral Shugarcaine was injected into the anterior chamber followed by Viscoat. A continuous-tear curvilinear capsulorrhexis was performed. The nucleus was hydrodissected and phacoemulsified. The cortex was evacuated using automated infusion and aspiration. Provisc was injected in the capsular bag, and a 20.0 diopter Toric intraocular lens was inserted in the bag and rotated to axis 070 as previously marked prior to surgery in the PACU on the cornea with a Toric marker. Infusion and aspiration were used to evacuate the viscoelastic materials. The eye was inflated to physiologic pressure using balanced salt solution and found to be watertight. The axis of the lens was again verified to be 070, which it was. Approximately 0.25 mL of a mixture of triamcinolone and moxifloxacin was injected transsclerally into the vitreous in the inferotemporal quadrant. An additional 0.55 mL of a mixture of triamcinolone and moxifloxacin and vancomycin was injected subconjunctivally in the superior quadrant for infection and inflammation prophylaxis. Wound integrity was checked with Weck-Nicole sponges. The IOL was verified one more time to be at axis 070. The patient was taken from the operating room in good condition and given postoperative instructions. TD: 07/18/2020 08:02 CORY
== END 2020-07-18 06:11 | disposition home or self-care (01) ==
LOC: SDS 06:10
PROVIDERS: ATTEND Ophthalmology
DX: H25.811 Combined forms of age-related cataract, right eye (principal); I10 Essential (primary) hypertension
CPT/HCPCS: 66984; A9270; J3490; J7120; V2632

== ENCOUNTER 2020-08-26 20:11 | Outpatient (CLI) | payer MEDICARE | END 2020-08-26 20:12 | disposition home or self-care (01) | LOC: COV 20:11 | PROVIDERS: ATTEND Ophthalmology | DX: Z01.812 Encounter for preprocedural laboratory examination (principal); H25.812 Combined forms of age-related cataract, left eye; Z20.822 Contact with and (suspected) exposure to COVID-19 ==

== ENCOUNTER 2020-08-29 09:20 | Day surgery (SDC) | payer MEDICARE ==
[~2020-08-29 09:20] MED LIST changes: -CEFAZOLIN SODIUM IN 0.9 % NACL 2 GM/100 ML BAG IV ONE; +KETOROLAC 0.45% OPHTH DROPS ONE; +PROPARACAINE 0.5% OPHTH DROPS 15 ML ONE
[2020-08-29] MEDS ORDERED: LACTATED RINGERS 500 ML IV ONE (09:53)
[2020-08-29] MEDS ORDERED: TRIAMCIN/MOXIFLOX OPHTHALMIC 0.6 ML VIAL IO ONE ×2 (10:35→11:05)
[2020-08-29] MEDS ORDERED: BRIMONIDINE 0.2% OPHTH DROPS 5 ML ONE (10:35)
[2020-08-29] MEDS ORDERED: EPINEPHrine 1 MG/ML AMP ONE (10:35)
[2020-08-29] MEDS ORDERED: TIMOLOL 0.5% OPHTH DROPS ONE (10:36)
[2020-08-29] MEDS ORDERED: VANCOMYCIN OPHTHALMI 8MG/0.8ML 8 MG/0.8 ML SYRINGE IO ONE ×2 (10:36→11:05)
[2020-08-29] MEDS ORDERED: BSS/LIDOCAINE/EPINEPHRINE 1 ML SYRINGE ONE (10:36)
[2020-08-29] MEDS ORDERED: MIDAZOLAM 2 MG/2 ML VIAL ONE (10:37)
--- NOTE | 2020-08-29 10:40 | ANESTHESIA ---
Pre-Anesthesia VS, & Labs - Diagnosis left eye senile combined cataract - Procedure left eye cataract extraction with IOL Vital Signs: Temp Pulse Resp BP Pulse Ox 36.0 C L 58 L 20 147/61 H 100 08/29/20 09:35 08/29/20 09:35 08/29/20 09:35 08/29/20 09:35 08/29/20 09:35 Height: 5 ft 10 in Weight (kg): 77.7 kg Body Mass Index: 24.5 BMI Classification: Healthy weight - NPO >8 hours Home Medications and Allergies Felodipine [Felodipine ER] 10 mg PO DAILY 03/20/14 gemfibroziL [Gemfibrozil] 600 mg PO BID 03/20/14 Multivitamin [Multiple Vitamins] 1 tab PO DAILY 08/01/18 Saw [place] 1 cap PO DAILY 08/01/18 Triamcinolone Acetonide [Nasacort] 1 spray NS DAILY 10/13/18 Allergies/Adverse Reactions: Allergies Allergy/AdvReac Type Severity Reaction Status Date / Time No Known Drug Allergies Allergy Verified 11/21/18 10:43 Anes History & Medical History - Anesthetic History Anesthesia Complications: reports: No previous complications - Medical History Cardiovascular: reports: None Pulmonary: reports: None Gastrointestinal: reports: None Urinary: reports: None Neuro: reports: None Musculoskeletal: reports: None Endocrine/Autoimmune: reports: None Blood Disorders: reports: None Skin: reports: None Smoking Status: Never smoker Psychosocial: reports: No issues indicated History of Cancer?: No - Surgical History General: reports: Colonoscopy Eyes Ears Nose Throat (EENT): reports: Cataracts Neurologic: reports: Other Orthopedic: reports: Spine surgery Exam General: Alert, Oriented x3, Cooperative, No acute distress Dental: WNL Mouth Openin Fingerbreadth Neck Mobility: Normal Mallampati classification: II Thyromental Distance: 4-6 cm Mental/Cognitive Status: Alert/Oriented X3, Normal for patient Plan Anesthesia Type: MAC Consent for Procedure(s) Verified and Reviewed: Yes Code Status: Attempt Resuscitation ASA classification: 1-Healthy patient Is this case an emergency?: No
[2020-08-29] MEDS ORDERED: BRIMONIDINE 0.2% OPHTH DROPS 5 ML OPTH ONE (11:04)
[2020-08-29] MEDS ORDERED: EPINEPHrine 1 MG/ML AMP IR ONE (11:04)
[2020-08-29] MEDS ORDERED: CHONDR SULF/HYALURONATE SYRINGE IO ONE (11:04)
[2020-08-29] MEDS ORDERED: BSS/LIDOCAINE/EPINEPHRINE 1 ML SYRINGE IO ONE (11:04)
[2020-08-29] MEDS ORDERED: TIMOLOL 0.5% OPHTH DROPS OPTH ONE (11:04)
[2020-08-29] MEDS ORDERED: PROPARACAINE 0.5% OPHTH DROPS 15 ML EACHEYE ONE (11:05)
[2020-08-29] MEDS ORDERED: LACTATED RINGERS 400 ML IV ONE (11:18)
[2020-08-29 11:33] VITALS: BP 144/74
--- NOTE | 2020-08-29 11:41 | OPERATIVE REPORT ---
DATE OF SERVICE: 08/29/2020 Physician: Scot Centeno MD PREOPERATIVE DIAGNOSIS: Visually significant cataract, left eye. Cataract surgery was performed on the right eye on 07/18/2020. POSTOPERATIVE DIAGNOSIS: Visually significant cataract, left eye. Cataract surgery was performed on the right eye on 07/18/2020. PROCEDURE: Phacoemulsification with posterior chamber intraocular lens implant, left eye. SURGEON: Scot Centeno MD. ANESTHESIA: Monitored anesthesia care. COMPLICATIONS: None. OPERATIVE INDICATIONS: This is a 75-year-old man with progressive vision loss in the left eye due to 2+ nuclear sclerotic, trace posterior subcapsular, and vacuolar cataract. Best corrected visual acuity was 20/20 with glare to 20/40 in the left eye. Indications for surgery are difficulty seeing words on a computer screen, difficulty reading, difficulty seeing words, closed captions or game scores on TV. He was consented at length concerning the risks and benefits of cataract surgery, after which he expressed a desire to proceed with surgery. OPERATIVE PROCEDURE: In the PACU the patient's cornea was marked with a Landon marker for axis 097 for a planned toric intraocular lens. He was then taken into OR #3 and placed under monitored anesthesia care. A surgical timeout was conducted, confirming correct patient, correct procedure, and correct surgical site. He was given topical anesthesia and prepped and draped in usual sterile fashion. The eye was entered at the 6 and 3 o'clock positions. Intracameral Shugarcaine was injected into the anterior chamber followed by Viscoat. A continuous-tear curvilinear capsulorrhexis was performed. The nucleus was hydrodissected and phacoemulsified. The cortex was evacuated using automated infusion and aspiration. Provisc was injected in the capsular bag and a 20.5 diopter toric intraocular lens inserted in the bag and rotated to axis 097. Infusion and aspiration were used to evacuate the viscoelastic materials. The eye was inflated to physiologic pressure using balanced salt solution and found to be watertight. The IOL axis was again verified at 097. Approximately 0.25 mL of a mixture of triamcinolone and moxifloxacin was injected transsclerally into the vitreous in the inferotemporal quadrant. An additional 0.55 mL mixture of triamcinolone, moxifloxacin, and vancomycin was injected subconjunctivally in the superior quadrant for infection and inflammation prophylaxis. Wound integrity was checked with Weck-Nicole sponges and the axis was once again to still be at axis 097. The patient was taken from the operating room in good condition and given postoperative instructions. TD: 08/29/2020 11:40 MTDD
--- NOTE | 2020-08-29 13:16 | ANESTHESIA POST OP EVALUATION ---
Anesthesia Post Eval - Post Anesthesia Eval Vitals: Last Vital Signs Temp 36.3 C L 08/29/20 11:32 Pulse 64 08/29/20 11:32 Resp 16 08/29/20 11:32 BP 144/74 H 08/29/20 11:32 Pulse Ox 100 08/29/20 11:32 CV Function Including HR & BP: Stable Pain Control: Satisfactory Nausea & Vomiting: Negative Mental Status: Baseline Respiratory Status: Airway Patent Hydration Status: Satisfactory Anesthesia Complications: None
== END 2020-08-29 09:21 | disposition home or self-care (01) ==
LOC: SDS 09:20
PROVIDERS: ATTEND Ophthalmology
DX: H25.812 Combined forms of age-related cataract, left eye (principal); I10 Essential (primary) hypertension; Z98.41 Cataract extraction status, right eye
CPT/HCPCS: 66984; A9270; J3490; J7120; V2632

== ENCOUNTER 2021-06-10 08:13 | Outpatient (CLI) | payer MEDICARE ==
[2021-06-10 08:52] LABS: BASOPHILS # (AUTO) 0.1 10^3/uL (0.0-0.1); BASOPHILS % (AUTO) 1.7 %; EOSINOPHILS # (AUTO) 0.4 10^3/uL (0.0-0.7); EOSINOPHILS % (AUTO) 5.4 %; HCT - HEMATOCRIT 43.5 % (42.0-52.0); HGB - HEMOGLOBIN 14.5 g/dL (14.0-18.0); LYMPHOCYTES # (AUTO) 1.4 10^3/uL (1.5-3.5); LYMPHOCYTES % (AUTO) 20.9 %; MEAN CORPUSCULAR HEMOGLOBIN 28.1 pg (27.0-31.0); MEAN CORPUSCULAR HGB CONC 33.3 g/dL (32.0-36.0); MEAN CORPUSCULAR VOLUME 84.3 fL (80.0-94.0); MEAN PLATELET VOLUME 11.4 fL (7.4-11.4); MONOCYTES # (AUTO) 0.6 10^3/uL (0.0-1.0); MONOCYTES % (AUTO) 9.4 %; NEUTROPHILS # (AUTO) 4.1 10^3/uL (1.5-6.6); NEUTROPHILS % (AUTO) 62.4 %; PLT - PLATELET COUNT 225 10^3/uL (130-450); RED BLOOD COUNT 5.16 10^6/uL (4.70-6.10); RED CELL DISTRIBUTION WIDTH 13.1 % (12.0-15.0); WHITE BLOOD COUNT 6.5 x10^3/uL (4.8-10.8)
[2021-06-10 09:13] LABS: ALBUMIN 4.5 g/dL (3.2-5.5); ALBUMIN/GLOBULIN RATIO 1.6 (1.0-2.2); ALKALINE PHOSPHATASE 54 IU/L (42-121); ALT ALANINE AMINOTRANSFERASE 16 IU/L (10-60); AST ASPARTATE AMINOTRANSFERASE 23 IU/L (10-42); BILIRUBIN,TOTAL 1.2 mg/dL (0.2-1.0); BUN - BLOOD UREA NITROGEN 23 mg/dL (6-20); CARBON DIOXIDE - CO2 26 mmol/L (21-32); CHLORIDE 101 mmol/L (101-111); CHOL/HDL RATIO 3.1 (<5.0); CHOLESTEROL 182 mg/dL; CREATININE 1.1 mg/dL (0.6-1.2); GFR - MDRD 65 (>89); GLUCOSE 101 mg/dL (70-100); HDL CHOLESTEROL 59 mg/dL; LDL CHOLESTEROL,CALCULATED 101 mg/dL; LDL/HDL RATIO 1.7 (<3.6); POTASSIUM 4.2 mmol/L (3.5-5.0); SODIUM 137 mmol/L (135-145); TOTAL PROTEIN 7.3 g/dL (6.7-8.2); TRIGLYCERIDES 110 mg/dL; VLDL CHOLESTEROL 22 mg/dL
[2021-06-10 09:22] LABS: THYROID STIMULATING HORMONE 3.59 uIU/mL (0.34-5.60)
== END 2021-06-10 08:14 | disposition home or self-care (01) ==
LOC: LAB 08:13
PROVIDERS: ATTEND Family Medicine
DX: I10 Essential (primary) hypertension (principal); E78.5 Hyperlipidemia, unspecified; Z12.5 Encounter for screening for malignant neoplasm of prostate; R30.0 Dysuria
CPT/HCPCS: 36415; 80053; 80061; 84443; 85025; G0103; 83721; 84153

== ENCOUNTER 2022-06-24 08:22 | Outpatient (CLI) | payer MEDICARE ==
[2022-06-24 08:45] LABS: BASOPHILS # (AUTO) 0.1 10^3/uL (0.0-0.1); EOSINOPHILS # (AUTO) 0.3 10^3/uL (0.0-0.7); HGB - HEMOGLOBIN 14.4 g/dL (14.0-18.0); LYMPHOCYTES # (AUTO) 1.5 10^3/uL (1.5-3.5); LYMPHOCYTES % (AUTO) 21.6 %; MEAN CORPUSCULAR HEMOGLOBIN 27.5 pg (27.0-31.0); MEAN CORPUSCULAR HGB CONC 32.7 g/dL (32.0-36.0); MEAN PLATELET VOLUME 10.6 fL (7.4-11.4); MONOCYTES # (AUTO) 0.6 10^3/uL (0.0-1.0); MONOCYTES % (AUTO) 8.1 %; NEUTROPHILS # (AUTO) 4.5 10^3/uL (1.5-6.6); PLT - PLATELET COUNT 246 10^3/uL (130-450); RED BLOOD COUNT 5.24 10^6/uL (4.70-6.10)
[2022-06-24 09:09] LABS: ALBUMIN 4.3 g/dL (3.2-5.5); ALBUMIN/GLOBULIN RATIO 1.3 (1.0-2.2); ALKALINE PHOSPHATASE 52 IU/L (42-121); ALT ALANINE AMINOTRANSFERASE 14 IU/L (10-60); AST ASPARTATE AMINOTRANSFERASE 20 IU/L (10-42); BUN - BLOOD UREA NITROGEN 23 mg/dL (6-20); CALCIUM 9.3 mg/dL (8.5-10.3); CARBON DIOXIDE - CO2 28 mmol/L (21-32); CHLORIDE 101 mmol/L (101-111); CHOL/HDL RATIO 3.5 (<5.0); CHOLESTEROL 180 mg/dL; GFR - MDRD 72 (>89); GLUCOSE 97 mg/dL (70-100); HDL CHOLESTEROL 52 mg/dL; LDL CHOLESTEROL,CALCULATED 102 mg/dL; POTASSIUM 4.2 mmol/L (3.5-5.0); SODIUM 135 mmol/L (135-145); TOTAL PROTEIN 7.7 g/dL (6.7-8.2); TRIGLYCERIDES 128 mg/dL; VLDL CHOLESTEROL 26 mg/dL
[2022-06-24 09:15] LABS: THYROID STIMULATING HORMONE 3.83 uIU/mL (0.34-5.60)
== END 2022-06-24 08:23 | disposition home or self-care (01) ==
LOC: LAB 08:22
PROVIDERS: ATTEND Family Medicine
DX: Z00.00 Encounter for general adult medical examination without abnormal findings (principal); Z12.5 Encounter for screening for malignant neoplasm of prostate
CPT/HCPCS: 36415; 80053; 80061; 84443; 85025; G0103; 83721; 84153

== ENCOUNTER 2023-01-29 08:20 | Day surgery (SDC) | payer MEDICARE ==
[2023-01-29] MEDS ORDERED: LACTATED RINGERS 1,000 ML IV ONE (08:42)
--- NOTE | 2023-01-29 08:50 | ANESTHESIA ---
Pre-Anesthesia VS, & Labs - Diagnosis screening - Procedure colonoscopy Vital Signs: Temp Pulse Resp BP Pulse Ox O2 Flow Rate 36.0 C L 68 16 141/59 H 99 01/29/23 08:35 01/29/23 08:35 01/29/23 08:35 01/29/23 08:35 01/29/23 08:35 Height: 5 ft 10 in Weight (kg): 77.4 kg Body Mass Index: 24.5 BMI Classification: Normal - NPO >8 hours - Lab Results Lab results reviewed: Yes Home Medications and Allergies Felodipine [Felodipine ER] 10 mg PO DAILY 03/20/14 gemfibroziL [Gemfibrozil] 600 mg PO BID 03/20/14 Multivitamin [Multiple Vitamins] 1 tab PO DAILY 08/01/18 Saw [place] 1 cap PO DAILY 08/01/18 Triamcinolone Acetonide [Nasacort] 1 spray NS DAILY 10/13/18 Allergies/Adverse Reactions: Allergies Allergy/AdvReac Type Severity Reaction Status Date / Time No Known Drug Allergies Allergy Verified 11/21/18 10:43 Anes History & Medical History - Anesthetic History Anesthesia Complications: reports: No previous complications Family history of Anesthesia Complications: Denies Family history of Malignant Hyperthermia: Denies - Medical History Cardiovascular: reports: High cholesterol, Other Pulmonary: reports: None Gastrointestinal: reports: GERD (rare), Colon polyps Urinary: reports: Benign prostate hypertrophy Neuro: reports: None Musculoskeletal: reports: Osteoarthritis Endocrine/Autoimmune: reports: None Blood Disorders: reports: None Skin: reports: Eczema Smoking Status: Never smoker Psychosocial: reports: No issues indicated - Surgical History General: reports: Colonoscopy Eyes Ears Nose Throat (EENT): reports: Cataracts Neurologic: reports: Other Orthopedic: reports: Spine surgery Exam General: Alert, Oriented x3, Cooperative Dental: WNL Mouth Openin Fingerbreadth Neck Mobility: Normal Mallampati classification: II Thyromental Distance: 4-6 cm Respiratory: Lungs clear Cardiovascular: Regular rate Plan Anesthesia Type: General, MAC Consent for Procedure(s) Verified and Reviewed: Yes Code Status: Attempt Resuscitation ASA classification: 2-Mild systemic disease Is this case an emergency?: No
[2023-01-29] MEDS ORDERED: PROPOFOL 500 MG/50 ML 500 MG/50 ML VIAL ONE (09:14)
[2023-01-29] MEDS ORDERED: LACTATED RINGERS 200 ML IV ONE ×2 (10:26)
[2023-01-29 10:41] VITALS: O2SAT 100
[2023-01-29 10:50] VITALS: BP 104/47
--- NOTE | 2023-01-29 13:19 | ANESTHESIA POST OP EVALUATION ---
Anesthesia Post Eval - Post Anesthesia Eval Vitals: Last Vital Signs Temp 36.0 C L 01/29/23 10:41 Pulse 57 L 01/29/23 10:41 Resp 16 01/29/23 10:41 BP 104/47 L 01/29/23 10:41 Pulse Ox 100 01/29/23 10:41 O2 Flow Rate CV Function Including HR & BP: Stable Pain Control: Satisfactory Nausea & Vomiting: Negative Mental Status: Baseline Respiratory Status: Airway Patent Hydration Status: Satisfactory Anesthesia Complications: None
== END 2023-01-29 08:21 | disposition home or self-care (01) ==
LOC: SDS 08:20
PROVIDERS: ATTEND Surgery
PROC: 0DBK8ZZ Excision of Ascending Colon, Via Natural or Artificial Opening Endoscopic (ICD-10-PCS; principal; 2023-01-29 09:30)
DX: Z12.11 Encounter for screening for malignant neoplasm of colon (principal); K57.30 Diverticulosis of large intestine without perforation or abscess without bleeding
CPT/HCPCS: 45380; J7120

== ENCOUNTER 2023-07-12 09:06 | Outpatient (CLI) | payer MEDICARE ==
[2023-07-12 09:21] LABS: BASOPHILS # (AUTO) 0.1 10^3/uL (0.0-0.1); BASOPHILS % (AUTO) 1.4 %; EOSINOPHILS # (AUTO) 0.2 10^3/uL (0.0-0.7); EOSINOPHILS % (AUTO) 3.5 %; HCT - HEMATOCRIT 44.7 % (42.0-52.0); HGB - HEMOGLOBIN 14.6 g/dL (14.0-18.0); LYMPHOCYTES # (AUTO) 1.5 10^3/uL (1.5-3.5); LYMPHOCYTES % (AUTO) 22.2 %; MEAN CORPUSCULAR HEMOGLOBIN 27.8 pg (27.0-31.0); MEAN CORPUSCULAR HGB CONC 32.7 g/dL (32.0-36.0); MEAN CORPUSCULAR VOLUME 85.1 fL (80.0-94.0); MEAN PLATELET VOLUME 10.4 fL (7.4-11.4); MONOCYTES # (AUTO) 0.7 10^3/uL (0.0-1.0); MONOCYTES % (AUTO) 9.8 %; NEUTROPHILS # (AUTO) 4.4 10^3/uL (1.5-6.6); PLT - PLATELET COUNT 272 10^3/uL (130-450); RED BLOOD COUNT 5.25 10^6/uL (4.70-6.10); RED CELL DISTRIBUTION WIDTH 13.1 % (12.0-15.0); WHITE BLOOD COUNT 6.9 x10^3/uL (4.8-10.8)
[2023-07-12 09:38] LABS: ALBUMIN 4.4 g/dL (3.2-5.5); ALBUMIN/GLOBULIN RATIO 1.5 (1.0-2.2); ALKALINE PHOSPHATASE 58 IU/L (42-121); ALT ALANINE AMINOTRANSFERASE 10 IU/L (10-60); AST ASPARTATE AMINOTRANSFERASE 18 IU/L (10-42); BILIRUBIN,TOTAL 1.2 mg/dL (0.2-1.0); BUN - BLOOD UREA NITROGEN 21 mg/dL (6-20); CALCIUM 9.4 mg/dL (8.5-10.3); CARBON DIOXIDE - CO2 28 mmol/L (21-32); CHLORIDE 100 mmol/L (101-111); CHOL/HDL RATIO 3.1 (<5.0); CHOLESTEROL 172 mg/dL; CREATININE 1.1 mg/dL (0.6-1.3); GFR - MDRD 65 (>89); GLUCOSE 97 mg/dL (74-104); HDL CHOLESTEROL 55 mg/dL; LDL CHOLESTEROL,CALCULATED 96 mg/dL; LDL/HDL RATIO 1.7 (<3.6); SODIUM 134 mmol/L (135-145); TOTAL PROTEIN 7.4 g/dL (6.4-8.9); TRIGLYCERIDES 104 mg/dL (48-352); VLDL CHOLESTEROL 21 mg/dL
[2023-07-12 09:51] LABS: THYROID STIMULATING HORMONE 2.75 uIU/mL (0.34-5.60)
== END 2023-07-12 09:07 | disposition home or self-care (01) ==
LOC: LAB 09:06
PROVIDERS: ATTEND Family Medicine
DX: I10 Essential (primary) hypertension (principal); K63.5 Polyp of colon; Z12.5 Encounter for screening for malignant neoplasm of prostate; D69.6 Thrombocytopenia, unspecified; E78.5 Hyperlipidemia, unspecified
CPT/HCPCS: 36415; 80053; 80061; 84443; 85025; G0103; 83721; 84153

== ENCOUNTER 2024-01-19 07:01 | Outpatient (CLI) | payer MEDICARE ==
[2024-01-19 07:40] LABS: CALCIUM 9.3 mg/dL (8.5-10.3); CREATININE 1.1 mg/dL (0.6-1.3); POTASSIUM 4.2 mmol/L (3.5-4.5)
== END 2024-01-19 07:02 | disposition home or self-care (01) ==
LOC: LAB 07:01
PROVIDERS: ATTEND Family Medicine
DX: R97.20 Elevated prostate specific antigen [PSA] (principal); Z12.5 Encounter for screening for malignant neoplasm of prostate
CPT/HCPCS: 36415; 80048; G0103; 84153